=== PATIENT | female | born 1945 | race Caucasian/White ===

== ENCOUNTER 2016-05-19 11:41 | Emergency (ER) | payer MEDICARE ==
[~2016-05-19] VITALS: Ht 149.9 cm; Wt 75.0 kg
[~2016-05-19 11:41] MED LIST: ALLOPURINOL100 MG PO; BAYER LOW DOSE81 MG PO; BAYER LOW81 MG OR; CIPROFLOXACN500 MG PO; DEXILANT60 MG OR; FORTAMET500 MG OR; GABAPENTIN300 MG PO; HYDROCHLOROT25 MG PO; JANUVIA100 MG PO; JANUVIA50 MG PO; L-THYROXINE PO; L-THYROXINE XX; LEVOTHYROXIN75 MC1 PO; LISINOPRIL10 MG PO; LORTAB 5/3255 MG PO; METRONIDAZOL500 MG; NASONEX50 MCG/AC; PANTOPRAZOLE SO40 MG PO; SERTRALINE HCL50 MG PO; SIMVASTATIN10 MG PO; SIMVASTATIN20 MG PO; SIMVASTATIN40 MG PO; SINGULAIR PO; VERAPAMIL240 M3 PO; ZITHROMAX250 MG PO
[2016-05-19] MEDS ORDERED: SINGULAIR10 MG PO (11:58)
[2016-05-19] MEDS ORDERED: VERAPAMIL HCL240 MG PO (11:58)
[2016-05-19] MEDS ORDERED: ATORVASTATIN CA20 MG PO (11:58)
[2016-05-19] MEDS ORDERED: ONGLYZA5 MG PO (12:00)
[2016-05-19] MEDS ORDERED: LISINOPRIL5 MG PO (12:01)
[2016-05-19] MEDS ORDERED: FERROUS SULF325 M1 PO (12:03)
[2016-05-19] MEDS ORDERED: LEVEMIR1000 UNITS SC (12:03)
[2016-05-19] MEDS ORDERED: VITAMIN D-32000 UNI1 PO (12:04)
[2016-05-19] MEDS ORDERED: C 250 PO (12:05)
[2016-05-19] MEDS ORDERED: MURO OU (12:06)
[2016-05-19 12:27] LABS: HEMATOCRIT 35.5 % (37.0-47.0); HEMOGLOBIN 11.9 g/dl (12.0-16.0); IMMATURE GRANULOCYTES 1.2 % (0.0-1.0); MEAN CELL VOLUME 95.4 fL CALC (80.0-100.0); MEAN CORPUSCULAR HGB CONC 33.5 g/L CALC (32.0-36.0); NEUT# 6.5 thou/uL (2.00-7.15); RED BLOOD COUNT 3.72 mill/uL (4.20-5.60); RED CELL DISTRI WIDTH 13.9 % (11.5-15.5)
[2016-05-19 13:16] LABS: ALBUMIN 4.1 g/dL (3.2-5.0); BILIRUBIN, TOTAL 0.5 mg/dL (0.0-1.4); CALCIUM 9.4 mg/dL (8.4-10.2); CREATININE 1.2 mg/dL (0.5-1.0); POTASSIUM 3.9 mmol/l (3.5-5.1); TOTAL PROTEIN 7.5 g/dL (6.3-8.2)
[2016-05-19 15:19] LABS: C. DIFFICILE TOXIN A&B NEGATIVE (NEGATIVE)
[2016-05-19] MEDS ORDERED: ZOFRAN4 MG/TAB PO (16:32)
[2016-05-19] MEDS ORDERED: CIPROFLOXACN500 MG PO (16:32)
[2016-05-19 16:39] VITALS: BP 147/63
== END 2016-05-19 16:58 | disposition home or self-care (01) ==
LOC: ED 11:41
PROVIDERS: Emergency Medicine
DX: K52.9 Noninfective gastroenteritis and colitis, unspecified (principal); R11.2 Nausea with vomiting, unspecified; R53.1 Weakness; I10 Essential (primary) hypertension; R94.31 Abnormal electrocardiogram [ECG] [EKG]